=== PATIENT | male | born 1985 | race African-American/Black ===

== ENCOUNTER 2016-05-25 05:50 | Emergency (ER) | payer MEDICAID, MEDICARE ==
[2016-05-25] MEDS ORDERED: OLANZAPINE 5 MG TAB.RAPDIS PO ONE (07:35)
[2016-05-25 07:57] LABS: ABSOLUTE BASOPHILS # (AUTO) 0.1 10^3/uL (0.0-0.2); ABSOLUTE EOSINOPHILS # (AUTO) 0.2 10^3/uL (0.0-0.6); ABSOLUTE LYMPHOCYTES (AUTO) 2.1 10^3/uL (0.5-4.7); ABSOLUTE MONOCYTES (AUTO) 0.8 10^3/uL (0.1-1.4); BASOPHILS % (AUTO) 0.5 % (0-2); EOSINOPHILS % (AUTO) 1.6 % (0-6); HEMATOCRIT 45.9 % (37.9-51.0); HEMOGLOBIN 15.1 g/dL (13.5-17.0); HGB HCT DIFFERENCE -0.6; LYMPHOCYTES % (AUTO) 15.6 % (13-45); MEAN CORPUSCULAR HEMOGLOBIN 30.2 pg (27.0-33.4); MEAN CORPUSCULAR HGB CONC 32.9 g/dL (32.0-36.0); MEAN CORPUSCULAR VOLUME 92 fl (80-97); MONOCYTES % (AUTO) 6.4 % (3-13); RED BLOOD COUNT 4.98 10^6/uL (4.35-5.55); RED CELL DISTRIBUTION WIDTH 14.2 % (11.5-14.0); SEGMENTED NEUTROPHILS % (AUTO) 75.9 % (42-78); WHITE BLOOD COUNT 13.2 10^3/uL (4.0-10.5)
[2016-05-25 08:06] LABS: ALANINE AMINOTRANSFERASE 31 U/L (21-72); ALBUMIN 4.8 g/dL (3.5-5.0); ALKALINE PHOSPHATASE 59 U/L (38-126); ANION GAP 12 (5-19); ASPARTATE AMINO TRANSFERASE 36 U/L (17-59); BILIRUBIN,TOTAL 0.4 mg/dL (0.2-1.3); BLOOD UREA NITROGEN 12 mg/dL (7-20); CALCIUM 10.1 mg/dL (8.4-10.2); CARBON DIOXIDE 30 mmol/L (22-30); CHLORIDE 100 mmol/L (98-107); GLUCOSE 89 mg/dL (75-110); SODIUM 141.8 mmol/L (137-145); TOTAL PROTEIN 8.4 g/dL (6.3-8.2)
[2016-05-25 08:08] LABS: ALCOHOL < 10 mg/dL (NONE DETECTED)
[2016-05-25] MEDS ORDERED: HYDROXYZINE PAMOATE 50 MG CAPSULE PO ONE (08:31)
[2016-05-25] MEDS ORDERED: CITALOPRAM HYDROBROMIDE 20 MG TABLET PO ONE (08:31)
[2016-05-25] MEDS ORDERED: BENZTROPINE MESYLATE 1 MG TABLET PO ONE (08:31)
[2016-05-25 08:32] LABS: APPEARANCE,URINE CLEAR; BILIRUBIN,URINE NEGATIVE (NEGATIVE); GLUCOSE, URINE NEGATIVE (NEGATIVE); KETONES,URINE TRACE mg/dL (NEGATIVE); LEUKOCYTE ESTERASE,URINE NEGATIVE (NEGATIVE); NITRITE,URINE NEGATIVE (NEGATIVE); PROTEIN,URINE NEGATIVE (NEGATIVE); URINE SPECIFIC GRAVITY 1.009; UROBILINOGEN,URINE NEGATIVE mg/dL (<2.0)
[2016-05-25 08:38] LABS: URINE BARBITURATES SCREEN NEGATIVE; URINE METHADONE SCREEN NEGATIVE; URINE OPIATES LOW NEGATIVE; URINE PHENCYCLIDINE SCREEN NEGATIVE
--- NOTE | 2016-05-25 11:09 | PSYCHOLOGICAL NOTE ---
Psych Note - Psych Note Psych Note: Patient is a 31 year old male who is voluntarily seeking assistance for "sleep. " Patient has a history of schizophrenia and presents manic at this time. Patient is hyperverbal and preoccupied with presybeterian. Patient states he initially came in this morning with his brother in law who presented with a medical complaint. Patient states he has no concerns at this time and is ready to discharge. Patient reports he is followed by Melody Goodwin at [facility] and last saw her in early May. Patient denies that he is on any sort of deconate shot, and states he takes oral Fluphenazine and Cogentin. Patient reports he was previously prescribed a monthly shot, but not anymore. He further reports that he lives with his mother, and brother who is visiting from [place]. Patient 's father, Cortes states the patient is Schizophrenic and last talked with him last night. He states he was unsure if he was taking his medications, but was not overly concerned. Father states his mother would know more, but does report that he often walks and paces in and out of the home throughout the night, regardless of medication compliance. Patient's mother, states: she is coming to get him. She states he has been upset over his sister, and did not take his medications last night. She reports she has no concerns and will take him home and get him his medications. She states he is fine and came in last night with his sister's boyfriend. Patient is A&O. Mood is anxious with normal affect. Patient denies suicidal/ homicidal ideations, intent, plan, or means. Patient denies A/V H; however, appears to be responding to internal stimuli. thought processes were flight of ideas. Conversational speech was rapid for rate, tone, and prosody. Intellectual abilities were estimated within average range. Attention and focus were poor. Insight, judgment, and impulse control were fair. Diagnosis: 298.9 (F29) Unspecified Schizophrenia Spectrum and Other Psychotic Disorder by history Patient is psychiatrically cleared for discharge. Patient's mother reports he is baseline. A careful review of patient's records suggest his hyperreligiousness is baseline as well. Betsy is encouraged to continue to take his medications and follow up with his outpatient treatment. I consulted with Dr. Espinosa in regards to the care and management of this patient. ED MD is in agreement with disposition and recommendations.
--- NOTE | 2016-05-25 11:15 | ER Document Report ---
ED General - General Chief Complaint: Other Stated Complaint: HELP STAYING AWAKE TRAVEL OUTSIDE OF THE [place]. IN LAST 30 DAYS: No - HPI Patient complains to provider of: psychiatric evaluation Notes: Patient's coming in for evaluation. Patient states he would like to have any hours of sleep he needs a night. Patient has a history of schizophrenia. Patient states that he is concerned that he is sleeping too much and not parenchyma stick guide. Patient has cheondoism preoccupation. Patient also has very pressured speech. Otherwise patient denies homicidal suicidal ideation. - Related Data Allergies/Adverse Reactions: divalproex sodium [From Depakote] Allergy (Verified 05/25/16 06:20) Home Medications: Current Home Medications Benztropine Mesylate 1 mg PO BID 05/25/16 [History] Fluphenazine HCl 10 mg PO BID 05/25/16 [History] Past Medical History - Social History Smoking Status: Current Every Day Smoker Frequency of alcohol use: Heavy Drug Abuse: Marijuana Family History: Reviewed & Not Pertinent, Other - unable due to patient condition Patient has suicidal ideation: No Patient has homicidal ideation: No Renal/ Medical History: Denies: Hx Peritoneal Dialysis Psychiatric Medical History: Reports: Hx Schizophrenia Past Surgical History: Reports: Hx Orthopedic Surgery - Immunizations Hx Diphtheria, Pertussis, Tetanus Vaccination: No Review of Systems - Review of Systems Constitutional: No symptoms reported EENT: No symptoms reported Cardiovascular: No symptoms reported Respiratory: No symptoms reported Gastrointestinal: No symptoms reported Genitourinary: No symptoms reported Male Genitourinary: No symptoms reported Musculoskeletal: No symptoms reported Skin: No symptoms reported Hematologic/Lymphatic: No symptoms reported Neurological/Psychological: Other - Pentecostalism preoccupation no homicidal suicidal ideation Physical Exam - Vital signs Vitals: Temp Pulse Resp BP Pulse Ox 97.7 F 114 H 18 135/90 H 97 05/25/16 05:56 05/25/16 05:56 05/25/16 05:56 05/25/16 05:56 05/25/16 05:56 Interpretation: Normal - General General appearance: Appears well, Alert - HEENT Head: Normocephalic, Atraumatic Eyes: Normal Pupils: PERRL - Respiratory Respiratory status: No respiratory distress Chest status: Nontender Breath sounds: Normal Chest palpation: Normal - Cardiovascular Rhythm: Regular Heart sounds: Normal auscultation Murmur: No - Abdominal Inspection: Normal Distension: No distension Bowel sounds: Normal Tenderness: Nontender Organomegaly: No organomegaly - Back Back: Normal, Nontender - Extremities General upper extremity: Normal inspection, Nontender, Normal color, Normal ROM , Normal temperature General lower extremity: Normal inspection, Nontender, Normal color, Normal ROM , Normal temperature, Normal weight bearing. No: Yari's sign - Neurological Neuro grossly intact: Yes Cognition: Normal Orientation: AAOx4 Fanny Coma Scale Eye Opening: Spontaneous Fanny Coma Scale Verbal: Oriented Pipestem Coma Scale Motor: Obeys Commands Fanny Coma Scale Total: 15 Speech: Normal Motor strength normal: LUE, RUE, LLE, RLE Sensory: Normal - Psychological Associated symptoms: Pentecostalism preoccupation, Other - Pressure speech - Skin Skin Temperature: Warm Skin Moisture: Dry Skin Color: Normal Course - Re-evaluation Re-evalutation: 05/25/16 15:08 Patient was evaluated by mental health team. With collateral information from this is patient's baseline. Patient otherwise is compliant with medications will follow-up with Dr. Cardenas. - Vital Signs Vital signs: Temp Pulse Resp BP Pulse Ox 97.8 F 99 18 136/87 H 97 05/25/16 11:54 05/25/16 11:54 05/25/16 11:54 05/25/16 11:54 05/25/16 11:54 - Laboratory Result Diagrams: 05/25/16 07:10 05/25/16 07:10 Laboratory results interpreted by me: 05/25/16 05/25/16 05/25/16 07:10 07:10 07:10 WBC 13.2 H RDW 14.2 H Absolute Neutrophils 10.0 H Creatine Kinase Total Protein 8.4 H Urine Ketones TRACE H Urine Blood MODERATE H Salicylates < 1.0 L Acetaminophen < 10 L 05/25/16 07:10 WBC RDW Absolute Neutrophils Creatine Kinase 597 H Total Protein Urine Ketones Urine Blood Salicylates Acetaminophen Discharge - Discharge Clinical Impression: Schizoaffective disorder Qualifiers: Schizoaffective disorder type: unspecified Qualified Code(s): F25.9 - Schizoaffective disorder, unspecified Condition: Good Disposition: HOME, SELF-CARE Instructions: Schizophrenia ([facility]) Additional Instructions: Please continue your home medications. Please follow-up with your mental health provider. Return to the ER if anything worsens. Referrals: SAHIL KEEN MD [Primary Care Provider] - Follow up in 3-5 days
[2016-05-25 11:57] VITALS: BP 136/87
--- NOTE | 2016-05-26 08:18 | EKG REPORT ---
SEVERITY:- OTHERWISE NORMAL ECG - SINUS TACHYCARDIA : Confirmed by: Maribel Hernandez MD 26-May-2016 08:16:47
== END 2016-05-25 12:22 | disposition home or self-care (01) ==
LOC: ER 05:50
DX: F25.9 Schizoaffective disorder, unspecified (principal); F17.200 Nicotine dependence, unspecified, uncomplicated
CPT/HCPCS: 93005; 99285; 36415; 80307 ×4; 82550; 85025; 80053; 81001; 93010; A9270 ×4; J3490

== ENCOUNTER 2017-08-15 02:33 | Emergency (ER) | payer MEDICARE, MEDICAID ==
[2017-08-15] MEDS ORDERED: CHLORPROMAZINE HCL INJ 25 MG/1 ML AMPULE IM ONE (02:53)
--- NOTE | 2017-08-15 03:01 | ER Document Report ---
ED Psych Disorder / Suicide - General Mode of Arrival: Ambulatory Information source: Patient TRAVEL OUTSIDE OF THE U.S. IN LAST 30 DAYS: No <OSCAR ESQUIVEL - Last Filed: 08/15/17 04:01> <GERALD EMERSON - Last Filed: 08/15/17 07:46> <JUAN F CAROLINA - Last Filed: 08/17/17 12:29> <ELIZABETH DASH - Last Filed: 08/17/17 13:07> - General Stated Complaint: PSYCH PROBLEM Time Seen by Provider: 08/15/17 02:49 Notes: Patient is a 32-year-old male with history of schizophrenia presents to the emergency department via EMS after being found wandering the streets naked. At bedside patient states that people continue to tell him that he is not loved by Alejandro and that he is sick. Patient states he is not sick and that there is nothing wrong with him. Patient has sabianism preoccupation. Patient then begins to speak incoherently and clap his hands. Approximately 45 minutes prior to arrival to the emergency department, EMS gave the patient 5 of Haldol and 25 of Benadryl. (OSCAR ESQUIVEL) - Related Data Allergies/Adverse Reactions: divalproex sodium [From Depakote] Allergy (Verified 05/25/16 06:20) Past Medical History - General Information source: Patient, Emergency Med Personnel - Social History Smoking Status: Current Every Day Smoker Family History: Reviewed & Not Pertinent, Other - unable due to patient condition Psychiatric Medical History: Reports: Hx Schizophrenia Past Surgical History: Reports: Hx Orthopedic Surgery - Immunizations Hx Diphtheria, Pertussis, Tetanus Vaccination: No <OSCAR ESQUIVEL - Last Filed: 08/15/17 04:01> Review of Systems - Review of Systems Constitutional: No symptoms reported EENT: No symptoms reported Cardiovascular: No symptoms reported Respiratory: No symptoms reported Gastrointestinal: No symptoms reported Genitourinary: No symptoms reported Male Genitourinary: No symptoms reported Musculoskeletal: No symptoms reported Skin: No symptoms reported Hematologic/Lymphatic: No symptoms reported Neurological/Psychological: See HPI -: Yes All other systems reviewed and negative <OSCAR ESQUIVEL - Last Filed: 08/15/17 04:01> Physical Exam - General General appearance: Alert In distress: None - HEENT Head: Normocephalic, Atraumatic Eyes: Normal Extraocular movements intact: Yes Pupils: PERRL Mucous membranes: Normal Neck: Normal - Respiratory Respiratory status: No respiratory distress - Back Back: Normal - Extremities General upper extremity: Normal ROM General lower extremity: Normal ROM - Neurological Neuro grossly intact: Yes Cognition: Normal Orientation: AAOx4 Fanny Coma Scale Eye Opening: Spontaneous Prim Coma Scale Verbal: Oriented Prim Coma Scale Motor: Obeys Commands Fanny Coma Scale Total: 15 Speech: Normal - Psychological Associated symptoms: Agitated, Flight of ideas, Christianity preoccupation, Other - Conversational speech was rapid - Skin Skin Temperature: Warm Skin Moisture: Dry Skin Color: Normal <OSCAR ESQUIVEL - Last Filed: 08/15/17 04:01> - HEENT Neck: Supple - Cardiovascular Rhythm: Regular - Abdominal Inspection: Normal - Extremities General upper extremity: Normal inspection General lower extremity: Normal inspection <GERALD EMERSON - Last Filed: 08/15/17 07:46> - Vital signs Vitals: Temp Pulse Resp BP Pulse Ox 100.4 F 124 H 16 144/95 H 96 08/15/17 02:58 08/15/17 02:58 08/15/17 02:58 08/15/17 02:58 08/15/17 02:58 Course - Laboratory Result Diagrams: 08/15/17 02:57 08/15/17 02:57 <OSCAR ESQUIVEL - Last Filed: 08/15/17 04:01> - Laboratory Result Diagrams: 08/15/17 02:57 08/15/17 02:57 - EKG Interpretation by Ak EKG shows normal: Sinus rhythm, [place], Intervals, QRS Complexes, ST-T Waves Rate: Tachycardia - 119 - Transfer of Care Care transferred to following provider: Dr. Don <GERALD EMERSON - Last Filed: 08/15/17 07:46> - Laboratory Result Diagrams: 08/15/17 02:57 08/15/17 02:57 <JUAN F CAROLINA - Last Filed: 08/17/17 12:29> - Laboratory Result Diagrams: 08/15/17 02:57 08/15/17 02:57 <ELIZABETH DASH - Last Filed: 08/17/17 13:07> - Re-evaluation Re-evalutation: 08/15/17 04:39 Patient did require restraints due to his behavior. IVC paperwork was filled out. (GERALD EMERSON) - Vital Signs Vital signs: Temp Pulse Resp BP Pulse Ox 98.2 F 80 18 133/74 H 99 08/17/17 05:40 08/17/17 05:40 08/17/17 05:40 08/17/17 05:40 08/17/17 05:40 - Laboratory Laboratory results interpreted by me: 08/15/17 08/15/17 08/15/17 02:57 02:57 02:57 Hgb 13.4 L Glucose 119 H Alkaline Phosphatase 37 L Urine Blood SMALL H Urine Ascorbic Acid 40 H Salicylates < 1.0 L Acetaminophen < 10 L - Transfer of Care Notes: 08/15/17 07:28 Transfer of care history and plan of care reported to Dr. Don. Patient is pending psychiatric evaluation for determination of further management. (GERALD EMERSON) Discharge <OSCAR ESQUIVEL - Last Filed: 08/15/17 04:01> <GERALD EMERSON - Last Filed: 08/15/17 07:46> <JUAN F CAROLINA - Last Filed: 08/17/17 12:29> <ELIZABETH DASH - Last Filed: 08/17/17 13:07> - Discharge Clinical Impression: Schizoaffective disorder, bipolar type Clinical Impression: (Ruled Out): Manic psychosis, Schizophrenia spectrum disorder with psychotic disorder type not yet determined Condition: Stable Disposition: HOME, SELF-CARE Additional Instructions: Schizoaffective disorder; Bipolar Type Schizoaffective disorder, bipolar type, is a chemical disorder that affects how the brain functions. The exact cause is unknown, but it tends to run in families. It is NOT caused by emotional trauma. It causes disordered thinking , including unusual beliefs and inability to "process" happenings around the patient. In addition to disordered thinink, schizoaffective disorder; bipolar type has mood dysregulation. Depression alternates with brain hyperactivity called yudi. Each phase lasts from several days to a few weeks. During the "manic phase," you may feel elated and energetic. You may have racing thoughts, rapid speech, increased activity, and grandiose ideas. During this time, you may not realize how poor your judgement is. Inappropriate spending, drug abuse, excessive alcohol use, marriage problems, and irresponsible sexual behavior are common during the manic phase. During the "depressive phase," you might feel depressed, guilty, worthless , fatigued, and unable to concentrate. You might have thoughts of suicide. Patients with schizoaffective disorder, bipolar type, benefit greatly from medicine. Never stop the medicine without the doctor's approval. Counselling may help the patient deal with his/her disease. Stresses and sudden changes may bring out symptoms. Drugs and alcohol abuse may become problems. Contact the counsellor or crisis line if there are thoughts of suicide or of harming others, or if you become aware of unusual thoughts or beliefs. It is believed that you are safe to leave and return to your home. Is recommended to follow-up with your outpatient mental health provider, [facility], in 3-5 days for continued outpatient mental health services. If you have a return of your symptoms, you should return for re-evaluation. Prescriptions: Clonidine HCl 0.1 mg PO QHS #10 tablet Benztropine Mesylate [Cogentin 1 mg Tablet] 1 mg PO DAILY #10 tablet Fluphenazine HCl [Prolixin 2.5 Mg Tablet] 10 mg PO BID #60 tablet Referrals: ASHIL KEEN MD [Primary Care Provider] - Follow up as needed [facility] [Outside] - Follow up in 3-5 days [place] Attestation: 08/15/17 03:11 I personally performed the services described in the documentation, reviewed and edited the documentation which was dictated to the scribe in my presence, and it accurately records my words and actions. (GERALD EMERSON) Aristidesibe Documentation - Scribe Written by Ligia:: Ligia Villegas, 08/15/2017 03:00 acting as scribe for :: Renata <OSCAR ESQUIVEL - Last Filed: 08/15/17 04:01>
[2017-08-15 03:22] LABS: ABSOLUTE EOSINOPHILS # (AUTO) 0.3 10^3/uL (0.0-0.6); ABSOLUTE LYMPHOCYTES (AUTO) 2.8 10^3/uL (0.5-4.7); ABSOLUTE MONOCYTES (AUTO) 0.9 10^3/uL (0.1-1.4); ABSOLUTE NEUT (AUTO) 3.9 10^3/uL (1.7-8.2); BASOPHILS % (AUTO) 0.5 % (0-2); EOSINOPHILS % (AUTO) 3.5 % (0-6); HEMATOCRIT 40.8 % (37.9-51.0); HEMOGLOBIN 13.4 g/dL (13.5-17.0); LYMPHOCYTES % (AUTO) 35.4 % (13-45); MEAN CORPUSCULAR HEMOGLOBIN 30.2 pg (27.0-33.4); MEAN CORPUSCULAR HGB CONC 32.8 g/dL (32.0-36.0); MEAN CORPUSCULAR VOLUME 92 fl (80-97); MONOCYTES % (AUTO) 11.3 % (3-13); PLATELET COUNT 235 10^3/uL (150-450); RED BLOOD COUNT 4.44 10^6/uL (4.35-5.55); SEGMENTED NEUTROPHILS % (AUTO) 49.3 % (42-78); TOTAL CELLS COUNTED % (AUTO) 100 %; WHITE BLOOD COUNT 7.9 10^3/uL (4.0-10.5)
[2017-08-15 03:33] LABS: APPEARANCE,URINE CLEAR; BILIRUBIN,URINE NEGATIVE (NEGATIVE); COLOR,URINE YELLOW; GLUCOSE, URINE NEGATIVE (NEGATIVE); KETONES,URINE NEGATIVE (NEGATIVE); LEUKOCYTE ESTERASE,URINE NEGATIVE (NEGATIVE); NITRITE,URINE NEGATIVE (NEGATIVE); PROTEIN,URINE NEGATIVE (NEGATIVE); URINE SPECIFIC GRAVITY 1.006; UROBILINOGEN,URINE NEGATIVE mg/dL (<2.0)
[2017-08-15 03:39] LABS: ALANINE AMINOTRANSFERASE 40 U/L (21-72); ALBUMIN 4.5 g/dL (3.5-5.0); ALKALINE PHOSPHATASE 37 U/L (38-126); ANION GAP 15 (5-19); ASPARTATE AMINO TRANSFERASE 40 U/L (17-59); BILIRUBIN,DIRECT 0.2 mg/dL (0.0-0.4); BILIRUBIN,TOTAL 0.7 mg/dL (0.2-1.3); BLOOD UREA NITROGEN 12 mg/dL (7-20); CALCIUM 9.8 mg/dL (8.4-10.2); CARBON DIOXIDE 27 mmol/L (22-30); CHLORIDE 101 mmol/L (98-107); GLUCOSE 119 mg/dL (75-110); SODIUM 142.5 mmol/L (137-145); TOTAL PROTEIN 7.5 g/dL (6.3-8.2)
[2017-08-15 03:42] LABS: URINE BARBITURATES SCREEN NEGATIVE
[2017-08-15 03:43] LABS: ACETAMINOPHEN < 10 ug/mL (10-30); ALCOHOL < 10 mg/dL (NONE DETECTED); SALICYLATE < 1.0 mg/dL (2.0-20.0)
[2017-08-15 04:33] LABS: URINE AMPHETAMINES SCREEN NEGATIVE; URINE BENZODIAZEPINES SCREEN NEGATIVE; URINE COCAINE SCREEN NEGATIVE; URINE METHADONE SCREEN NEGATIVE; URINE PHENCYCLIDINE SCREEN NEGATIVE
[2017-08-15 05:27] LABS: URINE MARIJUANA (THC) SCREEN UNCONFIRMED POSITIVE
--- NOTE | 2017-08-15 10:11 | ER Document Report ---
Doctor's Note Notes: 08/15/17 10:10 Patient's initial presenting temperature 100.4, heart rate was 124, however his lab work noted no sign of infection, it appears the patient was agitated when it first arrived, on reevaluation his vitals have stabilized, he does not have any other meningeal signs, his mother notes that this is similar to his previous exacerbations of his manic episodes, that the patient has missed his home medication dosages since there was a change in his environment. I am awaiting mental health evaluation but I expect to keep the patient overnight, keep a close eye on the vital signs
[2017-08-15] MEDS: BENZTROPINE MESYLATE 1 MG TABLET PO SCH ×2 (10:45→18:50)
[2017-08-15] MEDS: FLUPHENAZINE HCL 2.5 MG TABLET PO SCH ×2 (10:45→18:50)
--- NOTE | 2017-08-15 11:38 | PSYCHOLOGICAL NOTE ---
Psych Note - Psych Note Psych Note: Reason for consult: Schizophrenia Contact Permissions: Patient's mother Leslie Archuleta [phone] Eval: 0730 Final Disposition 0900 Patient is a 32-year-old male. Patient reports that he likes to play soccer. Patient reports that he is feeling like himself. Patient stated "I like Alejandro, I am a Jain, you got to follow because command". Patient stated that he wants clinician to talk to mother as he cannot right now. Patient stated random words like "nighttime", "Alejandro can hear", and other statements that were not related to the topic being discussed. Collateral information: Patient's mother Leslie (present) Patient's mother reports that patient was doing good regarding his bipolar with schizoaffective disorder for the last 6 years. Patient's mother reports the last time the patient had to go to an inpatient psychiatric hospital was 6 years ago. Patient's mother reports that patient had not been on his medication for around 5-6 days due to having to move abruptly and having things in boxes and not being able to find his medication. Patient's mother reports that the patient is good with taking his medication and she does not have to remind him when they went to see [facility] for a walk-in they did not see him so they went back and said how important it was to be on his medication and they called in a refill prescription yesterday. Patient's mother reports that he got his first dose last night and believes that if he has enough medication in his system he would be back to his self. Patient's mother reports that he was triggered from having to move because he had gotten behind in the rent by $650 and when he went to pay the money they told him that he had 14 days to move. Patient's mother reports that he is seen by Melody Sierra. Patient's mother reports that patient was seeing Dr. Miranda for years once a month for therapy and that [place] and so he has had time adjusting to a new provider and skipped a few sessions. Patient's mother reports that patient had difficulty sleeping without his melatonin. Patient's mother reports that he is prescribed fluphenazine 10 mg twice a day and benztropine 1 mg twice a day. Patient's mother reports that she wants patient to go into some type of program that does a social support group and activities for people with schizophrenia. Patient's mother reports that she is interested in the resource for [place] so that she could get him in a psychosocial rehabilitation program. Patient's mother reports that she raised them in the islam and that when he is this way he mainly talks about God because he loves the Lord and yesterday just wanted to watch the Jain channel and became upset about that while in the emergency department because he was not able to find a channel about God. Patient's mother reports that they have had a lot of hardship financially and it is not good for patient stability. Patient's mother reports that patient was getting shots of medication but did not need it because he takes his medications good. Patient's mother reports that he is not a harm to himself or others it is this he is manic right now ever since the end of July. Patient's mother reports that patient is his own guardian but she lives with him and does not have to help him out too much because he can take care of himself is very clean person and even cooks for himself. Patient's mother reports when patient is manic he gets paranoid, she reports she has a degree in psychology and is knowledgeable with the terminology. Medication recommendation made by contracted [facility] a provider Dr. Mechelle MD includes: 1. Please begin Fluphenazine 10 mg twice a day 2. Please begin benztropine 1 mg twice a day 3. Please begin clonidine 0.1 mg at night to assist with sleep Diagnosis: Per Hx (patient's mother reports) 295.75 (F25.0) Schizoaffective disorder Bipolar Type ( current episode manic) Impression/plan: Recommendation to maintain involuntary commitment for 24 hours due to patient meeting criteria [place] GS 122C . Clinician observed patient is currently experiencing acute psychosis and is responding to internal stimuli, as evidenced by talking to himself in his room, and experiencing paranoia ( per patient's mother report) surrounding what he is currently hearing/seeing. Clinician observed patient is currently experiencing flight of ideas, pressured speech, and unable to answer assessment questions. Mental health to reassess at a later time. Attending physician in agreement with disposition and plan. Consulted with Dr. Espinosa regarding the management and care of patient.
[2017-08-15] MEDS: CLONIDINE HCL 0.1 MG TABLET PO SCH (22:36)
[2017-08-16] MEDS ORDERED: DIPHENHYDRAMINE HCL 50 MG CAPSULE PO ONE (04:11)
[2017-08-16] MEDS: FLUPHENAZINE HCL 2.5 MG TABLET PO SCH ×2 (10:53→18:06)
[2017-08-16] MEDS: BENZTROPINE MESYLATE 1 MG TABLET PO SCH ×2 (10:53→18:07)
--- NOTE | 2017-08-16 12:03 | ER Document Report ---
Doctor's Note Notes: 08/16/17 12:02 32-year-old male with past medical history as recorded who presented for an episode with the patient was found wandering naked in the streets. Patient is having some jainism paranoia. Patient has a history of such symptoms in the past. Patient initially presented with a temperature of 100.4 but the febrile workup has been unremarkable and the patient has been afebrile since that time with no signs of headache or neck stiffness. Patient denies any complaints at this time. The psychology team is seen and evaluated the patient and has change the medication regimen. Vital signs are stable. Patient is in no acute distress. Marijuana positive on toxicology screen.
--- NOTE | 2017-08-16 16:31 | PSYCHOLOGICAL NOTE ---
Psych Note - Psych Note Psych Note: Reason for consult: Re-Evalutaion, Schizophrenia and Bipolar history, out of medications x 5 days with stressful trigger of abrupt move Contact Permissions: Patient's mother Leslie Archuleta [phone], often at bedside and considered natural support Patient is a 32 year old male who is in the ED under and IVC, petitioned by ED Physician due to history of Schizophrenia and Bipolar, having been off medications for 5 days, a stressful trigger of abrupt move and yudi. His home medications were restarted yesterday morning and the plan was to get them back in his system for stabilization. Today patient continued to present manic, with flight of ideas, had pressured speech, was hyper-gnosticist (however family is very gnosticist in general), and energetic (antsy, up pacing often). Mother was at bedside and commented "he is doing better but could use another day or two." Diagnosis: 295.75 (F25.0) Schizoaffective Disorder, Bipolar Type (current episode manic) by history per mother's report Impression/Plan: Recommendation to maintain IVC given patient's continued level of yudi and having received only a full 24 hours of medications after being out of them for 5 days. Want to obtain stabilization in ED. Mother appears to be supportive and understanding of his MH symptoms. Will reassess in the morning and if continued improvement along with mother's ability to manage at home may do plan of care for discharge which will include follow up with current provider Melody Goodwin at [facility]. Consulted with Dr. Espinosa regarding the management and care of patient. ED Physician in agreement with recommendation.
[2017-08-16] MEDS: CLONIDINE HCL 0.1 MG TABLET PO SCH (21:21)
[2017-08-17] MEDS: FLUPHENAZINE HCL 2.5 MG TABLET PO SCH (09:31)
[2017-08-17] MEDS: BENZTROPINE MESYLATE 1 MG TABLET PO SCH (09:31)
--- NOTE | 2017-08-17 10:00 | EKG REPORT ---
SEVERITY:- OTHERWISE NORMAL ECG - SINUS TACHYCARDIA : Confirmed by: Kamryn Ann 17-Aug-2017 09:59:52
--- NOTE | 2017-08-17 12:29 | PSYCHOLOGICAL NOTE ---
Psych Note - Psych Note Psych Note: Reason for consult: Re-Evalutaion, Schizophrenia and Bipolar history, out of medications x 5 days with stressful trigger of abrupt move Contact Permissions: Patient's mother Leslie Archuleta [phone], often at bedside and considered natural support Patient is a 32 year old male who is in the ED under and IVC, petitioned by ED Physician due to history of Schizophrenia and Bipolar, having been off medications for 5 days, a stressful trigger of abrupt move and yudi. His home medications were restarted yesterday morning and the plan was to get them back in his system for stabilization. Patient observed to be sitting calmly in bed. Patient disclosed thoughts and emotions surrounding his latter day and discussed his tattoos and their meanings with clinician. Patient is no longer manic and is considered at his baseline. Diagnosis: 295.75 (F25.0) Schizoaffective Disorder, Bipolar Type (current episode manic) by history per mother's report Impression/Plan:Patient is recommended for rescind of IVC and is considered cleared from acute psychiatric services. Patient no longer meets IVC criteria per [place] GS 120 2C. Patient is no longer manic is sitting calmly and can discuss his thoughts and emotions. Patient is recommended to follow up with his current provider Melody Goodwin at [facility]. Consulted with Dr. Espinosa regarding the management and care of patient. ED Physician in agreement with recommendation.
[2017-08-17 13:05] VITALS: BP 115/70
--- NOTE | 2017-08-17 13:14 | ER Document Report ---
Doctor's Note Notes: 08/17/17 13:14 Rounds: Chart reviewed and patient interviewed. Vital signs are all normal. Lab studies were essentially normal. Patient no longer seems to be in a manic state. Patient appears to be medically stable for transfer or discharge. Ronald Trinh MD
== END 2017-08-17 14:49 | disposition home or self-care (01) ==
LOC: ER 02:33
DX: F25.0 Schizoaffective disorder, bipolar type (principal); R50.9 Fever, unspecified
CPT/HCPCS: 93005; 99285; 96372; 36415; 80307 ×4; 85025; 80053; 81001; 93010; A9270 ×9; J3230; J3490

== ENCOUNTER 2017-09-28 00:50 | Emergency (ER) | payer MEDICARE, OTHER ==
[2017-09-28] MEDS ORDERED: LORAZEPAM INJ 2 MG/1 ML VIAL IM ONE (01:15)
--- NOTE | 2017-09-28 01:18 | ER Document Report ---
ED General - General Stated Complaint: PSYCH EVALUATION Time Seen by Provider: 09/28/17 00:59 Notes: Patient is a 32-year-old male who presents with complaint of being off his psychiatric medications. He is brought in by police after being placed on involuntary commitment paperwork. Patient has history of bipolar and has presented your times in the past with yudi. Patient was very agitated not making sense with the ambulance. They therefore gave him 25 mg of Benadryl and 5 mg of Haldol. Patient currently is talking but not making a lot of sense and is going from one topic to another without a good transition. He will not me appropriate answers to my questions at this time. I did evaluate his previous visits to the ER and see where he is been evaluated by psychiatry here in the past with very similar presentations of tachycardia, yudi, and some confusion which eventually was improved with medications. TRAVEL OUTSIDE OF THE [place] IN LAST 30 DAYS: No - Related Data Allergies/Adverse Reactions: divalproex sodium [From Depakote] Allergy (Verified 05/25/16 06:20) Past Medical History - Social History Smoking Status: Unknown if Ever Smoked Frequency of alcohol use: unkown Drug Abuse: Other - unknown Family History: Reviewed & Not Pertinent, Other - unable due to patient condition Renal/ Medical History: Denies: Hx Peritoneal Dialysis Psychiatric Medical History: Reports: Hx Bipolar Disorder, Hx Schizophrenia Past Surgical History: Reports: Hx Orthopedic Surgery - Immunizations Hx Diphtheria, Pertussis, Tetanus Vaccination: No Review of Systems - Review of Systems -: Yes ROS unobtainable due to patient's medical condition - Patient does not answer questions appropriately Physical Exam - Notes Notes: General Appearance: Well nourished, alert, confused, no acute distress, no obvious discomfort. Vitals: reviewed, See vital signs table. Head: no swelling or tenderness to the head Eyes: PERRL, EOMI, Conjuctiva clear Mouth: No decreasd moisture Throat: No tonsillar inflammation, No airway obstruction, No lymphadenopathy Neck: Supple, no neck tenderness, No thyromegaly Lungs: No wheezing, No rales, No rhonci, No accessory muscle use, good air exchange bilaterally. Heart: Normal rate, Regular rythm, No murmur, no rub Abdomen: Normal BS, soft, No rigidity, No abdominal tenderness, No guarding, no rebound, no abdominal masses, no organomegaly Extremities: strength 5/5 in all extremities, good pulses in all extremities, no swelling or tenderness in the extremities, no edema. Skin: warm, dry, appropriate color, no rash Neuro: Speech is clear patient is not putting together appropriate sentences. He quickly goes from one topic to another. He talks about going to a [place] and then continues to talk about God and then talk about his ears and hearing. Patient is moving all extremities appropriately. No focal neurologic deficits on exam. Discharge - Discharge Referrals: SAHIL KEEN MD [Primary Care Provider] - Follow up as needed
[2017-09-28 02:47] LABS: ABSOLUTE EOSINOPHILS # (AUTO) 0.1 10^3/uL (0.0-0.6); ABSOLUTE LYMPHOCYTES (AUTO) 1.6 10^3/uL (0.5-4.7); ABSOLUTE MONOCYTES (AUTO) 1.2 10^3/uL (0.1-1.4); ABSOLUTE NEUT (AUTO) 10.6 10^3/uL (1.7-8.2); BASOPHILS % (AUTO) 0.4 % (0-2); EOSINOPHILS % (AUTO) 0.4 % (0-6); HEMATOCRIT 45.5 % (37.9-51.0); HEMOGLOBIN 15.3 g/dL (13.5-17.0); LYMPHOCYTES % (AUTO) 11.7 % (13-45); MEAN CORPUSCULAR HEMOGLOBIN 30.5 pg (27.0-33.4); MEAN CORPUSCULAR HGB CONC 33.6 g/dL (32.0-36.0); MEAN CORPUSCULAR VOLUME 91 fl (80-97); MONOCYTES % (AUTO) 8.9 % (3-13); PLATELET COUNT 246 10^3/uL (150-450); RED BLOOD COUNT 5.01 10^6/uL (4.35-5.55); RED CELL DISTRIBUTION WIDTH 13.9 % (11.5-14.0); SEGMENTED NEUTROPHILS % (AUTO) 78.6 % (42-78); TOTAL CELLS COUNTED % (AUTO) 100 %; WHITE BLOOD COUNT 13.5 10^3/uL (4.0-10.5)
[2017-09-28 02:59] LABS: ALANINE AMINOTRANSFERASE 28 U/L (21-72); ALBUMIN 5.5 g/dL (3.5-5.0); ALKALINE PHOSPHATASE 65 U/L (38-126); ANION GAP 17 (5-19); ASPARTATE AMINO TRANSFERASE 71 U/L (17-59); BILIRUBIN,DIRECT 0.5 mg/dL (0.0-0.4); BILIRUBIN,TOTAL 1.2 mg/dL (0.2-1.3); BLOOD UREA NITROGEN 20 mg/dL (7-20); CALCIUM 10.2 mg/dL (8.4-10.2); CARBON DIOXIDE 25 mmol/L (22-30); CHLORIDE 97 mmol/L (98-107); GLUCOSE 92 mg/dL (75-110); POTASSIUM 4.7 mmol/L (3.6-5.0); TOTAL PROTEIN 8.9 g/dL (6.3-8.2)
[2017-09-28 03:00] LABS: ACETAMINOPHEN < 10 ug/mL (10-30); ALCOHOL < 10 mg/dL (NONE DETECTED); SALICYLATE < 1.0 mg/dL (2.0-20.0)
[2017-09-28 08:03] LABS: APPEARANCE,URINE SLIGHTLY-CLOUDY; BILIRUBIN,URINE NEGATIVE (NEGATIVE); COLOR,URINE YELLOW; GLUCOSE, URINE NEGATIVE (NEGATIVE); KETONES,URINE 20 mg/dL (NEGATIVE); LEUKOCYTE ESTERASE,URINE NEGATIVE (NEGATIVE); NITRITE,URINE NEGATIVE (NEGATIVE); PROTEIN,URINE 100 mg/dL (NEGATIVE); URINE SPECIFIC GRAVITY 1.026; UROBILINOGEN,URINE NEGATIVE mg/dL (<2.0)
[2017-09-28 08:15] LABS: URINE AMPHETAMINES SCREEN NEGATIVE; URINE BARBITURATES SCREEN NEGATIVE; URINE BENZODIAZEPINES SCREEN NEGATIVE; URINE COCAINE SCREEN NEGATIVE; URINE MARIJUANA (THC) SCREEN UNCONFIRMED POSITIVE; URINE METHADONE SCREEN NEGATIVE; URINE PHENCYCLIDINE SCREEN NEGATIVE
--- NOTE | 2017-09-28 10:16 | ER Document Report ---
Doctor's Note Notes: 09/28/17 10:12 Rounds: Chart reviewed and patient interviewed. Patient has a history of bipolar disorder with manic symptoms and confusion. Has been here previously for similar presentations. Reportedly out of his medications. Lab studies were positive for marijuana and white count of 13,500 without any infection symptoms. Vital signs were all essentially normal. Patient appears to be medically stable for transfer or discharge. Ronald Trinh MD
[2017-09-28] MEDS ORDERED: BENZTROPINE MESYLATE 1 MG TABLET PO SCH (11:00)
[2017-09-28] MEDS ORDERED: FLUPHENAZINE HCL 2.5 MG TABLET PO SCH (11:00)
[2017-09-28] MEDS ORDERED: FLUPHENAZINE HCL 2.5 MG TABLET PO ONE (12:00)
[2017-09-28] MEDS ORDERED: BENZTROPINE MESYLATE 1 MG TABLET PO ONE (12:00)
[2017-09-28] MEDS: BENZTROPINE MESYLATE 1 MG TABLET PO SCH (17:17)
--- NOTE | 2017-09-29 00:25 | EKG REPORT ---
SEVERITY:- ABNORMAL ECG - SINUS TACHYCARDIA BIATRIAL ABNORMALITIES : Confirmed by: Maribel Hernandez MD 29-Sep-2017 00:24:06
[2017-09-29 07:37] VITALS: BP 125/78
--- NOTE | 2017-09-29 08:16 | PSYCHOLOGICAL NOTE ---
Psych Note - Psych Note Psych Note: Reason for consult: Manic Contact Permissions: Patient's mother Leslie Archuleta [phone], often at bedside and considered natural support Patient is a 32-year-old male who presents with complaint of being off his psychiatric medications. He is brought in by police after being placed on involuntary commitment paperwork. Patient has history of bipolar and has presented your times in the past with yudi. Patient was very agitated not making sense with the ambulance. They therefore gave him 25 mg of Benadryl and 5 mg of Haldol. Patient currently is talking but not making a lot of sense and is going from one topic to another without a good transition. He will not me appropriate answers to my questions at this time. Patient observed to be sitting calmly in bed. He discloses he feels "better...happier." He disclosed he was staying at his sisters home and was stressed because his [id number] was "cussing every night." He reports he was taking his medications. Patient is no longer manic and is considered at his baseline. He disclosed that he will not be returning to his sister's home, he will be living with his mother again. Patient denies suicidal and homicidal ideation. Delusions are absent and behaviour is congruent with an intake reality based presentation; ie organized and linear thought processes. Patient is able to carry on a linear conversation with normal rate, tone and prosody. Eye contact was well maintained. Medication recommendations per [facility]'s contracted psychiatrist Dr. Mechelle MD are as follows: 1. Prolixin 10mg twice daily 2. Cogentin 1mg twice daily Diagnosis: 295.75 (F25.0) Schizoaffective Disorder, Bipolar Type (current episode manic) by history per mother's report Impression/Plan:Patient is recommended for rescind of IVC and is considered cleared from acute psychiatric services. Patient no longer meets IVC criteria per [place] GS 122C. Patient is no longer manic is sitting calmly and can discuss his thoughts and emotions. Patient is recommended to follow up with his current provider Melody Goodwin at [facility] for medication management and to obtain both therapeutic services and possible Community Support Team services. Consulted with Dr. Espinosa regarding the management and care of patient; attending physician is in agreement with recommendations and disposition.
[2017-09-29] MEDS: BENZTROPINE MESYLATE 1 MG TABLET PO SCH (09:34)
== END 2017-09-29 09:51 | disposition home or self-care (01) ==
LOC: ER 00:50
DX: F25.0 Schizoaffective disorder, bipolar type (principal); T50.906A Underdosing of unspecified drugs, medicaments and biological substances, initial encounter; Z91.14 Patient's other noncompliance with medication regimen; Z88.8 Allergy status to other drugs, medicaments and biological substances
CPT/HCPCS: 93005; 99285; 96372; 36415; 80307 ×4; 85025; 80053; 81001; 93010; A9270 ×3; J2060; J3490

== ENCOUNTER 2018-12-03 12:07 | Emergency (ER) | payer MEDICARE, OTHER ==
--- NOTE | 2018-12-03 13:25 | ER Document Report ---
HPI - HPI Patient complains to provider of: left foot pain Time Seen by Provider: 12/03/18 13:18 Onset: Other - over 2 years Onset/Duration: Persistent Quality of pain: Achy Pain Level: 3 Context: Patient presents complaining of pain to plantar surface of left foot for over 2 years. Patient denies any injury or fever. Associated Symptoms: denies: Fever Exacerbated by: Standing, Walking Relieved by: Denies Similar symptoms previously: No Recently seen / treated by doctor: No - ROS ROS below otherwise negative: Yes Systems Reviewed and Negative: Yes All other systems reviewed and negative - CONSTITUTIONAL Constitutional: DENIES: Fever - MUSCULOSKELETAL Musculoskeletal: REPORTS: Extremity pain - DERM Skin Color: Normal Notes: thickened skin to foot Past Medical History - General Information source: Patient - Social History Smoking Status: Current Every Day Smoker Smoking Education Provided: Yes Frequency of alcohol use: None Drug Abuse: None Family History: Reviewed & Not Pertinent, Other - unable due to patient condi tion Renal/ Medical History: Denies: Hx Peritoneal Dialysis Psychiatric Medical History: Reports: Hx Bipolar Disorder, Hx Schizophrenia Past Surgical History: Reports: Hx Orthopedic Surgery - Immunizations Hx Diphtheria, Pertussis, Tetanus Vaccination: No Vertical Provider Document - CONSTITUTIONAL Agree With Documented VS: Yes Exam Limitations: No Limitations General Appearance: WD/WN, No Apparent Distress - INFECTION CONTROL TRAVEL OUTSIDE OF THE [place] IN LAST 30 DAYS: No - HEENT HEENT: Atraumatic, Normocephalic - NECK Neck: Normal Inspection - RESPIRATORY Respiratory: No Respiratory Distress - CARDIOVASCULAR Pulses: Normal: Dorsalis pedis - MUSCULOSKELETAL/EXTREMETIES Musculoskeletal/Extremeties: MAEW, FROM, Tender - Tenderness to plantar surface of the left foot under the fourth metatarsal, skin thickened consistent with callus - NEURO Level of Consciousness: Awake, Alert, Appropriate Motor/Sensory: No Motor Deficit - DERM Integumentary: Warm, Dry, No Rash Course - Re-evaluation Re-evalutation: 12/03/18 13:25 Patient with what appears to be a callus to the plantar surface of left foot. Patient states this is been there for several years. Will x-ray to evaluate for any possible foreign body - Vital Signs Vital signs: Temp Pulse Resp BP Pulse Ox 97.8 F 82 16 132/74 H 100 12/03/18 12:13 12/03/18 12:13 12/03/18 12:13 12/03/18 12:13 12/03/18 12:13 Discharge - Discharge Clinical Impression: Callus of foot Foot pain Qualifiers: Laterality: left Qualified Code(s): M79.672 - Pain in left foot Condition: Stable Disposition: HOME, SELF-CARE Additional Instructions: Return immediately for any new or worsening symptoms Followup with your primary care provider, call tomorrow to make a followup appointment You have a callus to the bottom of your foot. There are sarj-hsh-segwsct treatments that you can use to help treat this including pumice stones as well as cushions to pad around the area. Moisturize feet and wear good supportive shoes. Follow up with podiatry for any persistent problems Forms: Smoking Cessation Education Referrals: RYAN HELLER DPM [ACTIVE STAFF] - Follow up as needed ZAYNAB YEE DPM [ACTIVE STAFF] - Follow up as needed
--- NOTE | 2018-12-03 13:50 | RADIOLOGY REPORT (SQ) ---
EXAM DESCRIPTION: FOOT LEFT COMPLETE COMPLETED DATE/TIME: 12/03/2018 1:42 pm REASON FOR STUDY: plantar pain, ?FB COMPARISON: None. NUMBER OF VIEWS: Three views. TECHNIQUE: AP, lateral and oblique radiographic images acquired of the left foot. LIMITATIONS: None. FINDINGS: MINERALIZATION: Normal. BONES: No acute fracture or dislocation. No worrisome bone lesions. JOINTS: No effusions. SOFT TISSUES: No soft tissue swelling. No foreign body. OTHER: No other significant finding. IMPRESSION: NEGATIVE STUDY OF THE LEFT FOOT. NO RADIOGRAPHIC EVIDENCE OF ACUTE INJURY. TECHNICAL DOCUMENTATION: JOB ID: [id number] [employer]- All Rights Reserved Reading location - IP/workstation name: [email or web address]
[2018-12-03 14:10] VITALS: BP 127/91
== END 2018-12-03 14:10 | disposition home or self-care (01) ==
LOC: ER 12:07
DX: L84 Corns and callosities (principal); M79.672 Pain in left foot; F17.200 Nicotine dependence, unspecified, uncomplicated
CPT/HCPCS: 99283

== ENCOUNTER 2019-11-26 18:54 | Emergency (ER) | payer MEDICARE, MEDICAID ==
[2019-11-26] MEDS ORDERED: ACETAMINOPHEN 325 MG TABLET PO ONE (19:26)
--- NOTE | 2019-11-26 19:29 | ER Document Report ---
HPI - HPI Patient complains to provider of: Ring stuck on fifth finger right hand Time Seen by Provider: 11/26/19 19:24 Onset: Other - Gradual Onset/Duration: Gradual Quality of pain: Sharp Severity: Moderate Pain Level: 3 Context: 34-year-old male presented to ED for complaint of ring stuck on his fifth finger. He states is been there a long time and his finger swelled up today and now he cannot get the ring off. After multiple attempts we were able to cut the ring off. The patient was given the ring and a cup to take home. Patient is alert oriented respirations regular nonlabored speaking in full sentences. Associated Symptoms: Other - Pain swelling to the right fifth finger due to a ring being stuck on his finger Exacerbated by: Movement - Movement of the ring Relieved by: Denies Similar symptoms previously: Yes Recently seen / treated by doctor: No - CONSTITUTIONAL Constitutional: DENIES: Fever, Chills - EENT EENT: DENIES: Sore Throat, Ear Pain, Nasal Drainage-Clear, Nasal Drainage- Purulent, Congestion, Eye problems - CARDIOVASCULAR Cardiovascular: DENIES: Chest pain - RESPIRATORY Respiratory: DENIES: Trouble Breathing, Coughing - GASTROINTESTINAL Gastrointestinal: DENIES: Abdominal Pain, Nausea, Patient vomiting, Diarrhea, Constipation, Black / Bloody Stools - URINARY Urinary: DENIES: Dysuria, Urgency, Frequency - REPRODUCTIVE Reproductive: DENIES: : - MUSCULOSKELETAL Musculoskeletal: REPORTS: Extremity pain - Right fifth finger, Swelling - Right fifth finger ring stuck causingher to swell - DERM Skin Color: Erythema, Ecchymosis - Right fifth finger Skin Problems: None Past Medical History - General Information source: Patient - Social History Smoking Status: Current Every Day Smoker Cigarette use (# per day): Yes - 1/2 pack/day Chew tobacco use (# tins/day): No Smoking Education Provided: Yes - 3 minutes Frequency of alcohol use: Social Drug Abuse: None Family History: Reviewed & Not Pertinent, Other - unable due to patient condition Patient has suicidal ideation: No Patient has homicidal ideation: No - Past Medical History Cardiac Medical History: Reports: None Pulmonary Medical History: Reports: None EENT Medical History: Reports: None Neurological Medical History: Reports: None Endocrine Medical History: Reports: None Renal/ Medical History: Reports: None Malignancy Medical History: Reports None GI Medical History: Reports: None Musculoskeletal Medical History: Reports Hx Musculoskeletal Trauma - 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 IN LAST 30 DAYS: No - HEENT HEENT: Atraumatic, Normal ENT Exam, Normocephalic, PERRLA - RESPIRATORY Respiratory: Breath Sounds Normal, No Respiratory Distress, Chest Non-Tender - CARDIOVASCULAR Cardiovascular: Regular Rate, Regular Rhythm, No Murmur - GI/ABDOMEN Gastrointestinal: Abdomen Soft, Abdomen Non-Tender, No Organomegaly, Normal Bowel Sounds - BACK Back: Normal Inspection - MUSCULOSKELETAL/EXTREMETIES Musculoskeletal/Extremeties: Tender - Right fifth finger, Edema - Right fifth finger, Eccymosis - Right fifth finger - NEURO Level of Consciousness: Awake Motor/Sensory: No Motor Deficit, No Sensory Deficit, No Pronator Drift Deep Tendon Reflexes: 2+ - DERM Integumentary: Warm, Dry, No Rash Course - Vital Signs Vital signs: Temp Pulse Resp BP Pulse Ox 98.6 F 102 H 16 145/89 H 99 11/26/19 19:02 11/26/19 18:58 11/26/19 18:58 11/26/19 18:58 11/26/19 18:58 Discharge - Discharge Clinical Impression: Being stuck on fifth finger right hand Condition: Stable Disposition: HOME, SELF-CARE Additional Instructions: The ring was removed from the fifth finger on the right hand. We did give you the ring and a cup. Ice & Elevation Apply ice packs frequently against the painful area. Many different schedules are recommended, such as "20 minutes on, 20 minutes off" or "one hour ice, two hours rest." If you need to work, you may need to go longer between ice treatments. You should plan to have the area ice packed AT LEAST one-fourth of the time. The ice should be applied over the wrap, tape, or splint, or over a layer of cloth -- not directly against the skin. Some ice bags have a built-in cloth and can be put directly on the skin. Your injured part should be elevated as much as possible over the next 48 hours. Try to keep the injury above the level of the heart. Avoid use of the injured area. Elevation and rest will decrease the swelling. Acetaminophen Acetaminophen may be taken for pain relief or fever control. It's much safer than aspirin, offering a wider range of "safe" dosages. It is safe during . Some brand names are Tylenol, Panadol, Datril, Anacin 3, Tempra, and Liquiprin. Acetaminophen can be repeated every four hours. The following are maximum recommended dosages: WEIGHT Dose Drops Elixir Chewable(80mg) (LBS.) drprs=droppers tsp=teaspoon 6 40 mg .4 ml (1/2) 6-11 80 mg .8 ml (full) 1/2 tsp 1 tab 12-16 120 mg 1 1/2 drprs 3/4 tsp 1 1/2 tabs 17-23 160 mg 2 drprs 1 tsp 2 tabs 24-30 240 mg 3 drprs 1 1/2 tsp 3 tabs 30-35 320 mg 2 tsp 4 tabs 36-41 360 mg 2 1/4 tsp 4 1/2 tabs 42-47 400 mg 2 1/2 tsp 5 tabs 48-53 480 mg 3 tsp 6 tabs 54-59 520 mg 3 1/4 tsp 6 1/2 tabs 60-64 560 mg 3 1/2 tsp 7 tabs 65-70 600 mg 3 3/4 tsp 7 1/2 tabs 71-76 640 mg 4 tsp 8 tabs 77-82 720 mg 4 1/2 tsp 9 tabs 83-88 800 mg 5 tsp 10 tabs >89 pounds or adults 650 mg to 900 mg Acetaminophen can be repeated every four hours. Maximum daily dose not to exceed 4000 mg. These maximum recommended dosages are slightly higher than the dosages written on the product container, but these dosages are very safe and well below the toxic dosage for acetaminophen. Ibuprofen Ibuprofen is an excellent, safe drug for pain control. In addition, it has potent antiinflammatory effects which are beneficial, especially in the treatment of injuries, arthritis, or tendonitis. It's best to take ibuprofen with food. Persons with ulcer disease or allergy to aspirin should notify their physician of this before taking ibuprofen. Take the medication exactly as prescribed. Don't take additional doses unless instructed to do so by your doctor. If you develop wheezing, shortness of breath, hives, faintness, stomach pain, vomiting, or dark black stools, return for re-evaluation at once. FOLLOW-UP CARE: If you have been referred to a physician for follow-up care, call the physicians office for an appointment as you were instructed or within the next two days. If you experience worsening or a significant change in your symptoms, notify the physician immediately or return to the Emergency Department at any time for re-evaluation. Forms: Elevated Blood Pressure, Smoking Cessation Education Referrals: [facility] [Provider Group] - Follow up as needed [facility] [Provider Group] - Follow up as needed
[2019-11-26 19:36] VITALS: BP 140/80
== END 2019-11-26 19:35 | disposition home or self-care (01) ==
LOC: ER 18:54
DX: S60.456A Superficial foreign body of right little finger, initial encounter (principal); M79.89 Other specified soft tissue disorders; M79.644 Pain in right finger(s); X58.XXXA Exposure to other specified factors, initial encounter; F17.210 Nicotine dependence, cigarettes, uncomplicated
CPT/HCPCS: 99282; 99406